=== PATIENT | male | born 1990 | race Caucasian/White ===

== ENCOUNTER 2019-04-16 14:34 | Emergency (ER) | payer MEDICAID ==
[~2019-04-16] VITALS: Ht 172.7 cm; Wt 67.0 kg
[2019-04-16 14:50] VITALS: BP 125/82
--- NOTE | 2019-04-16 14:55 | NUR ---
PATIENT ARRIVES WITH A COUGH THAT BEGAN ON FRIDAY. HE STATES HE WORKS AT [employer] AND IT'S IMPEDING HIS WORK.
--- NOTE | 2019-04-16 16:00 | NUR ---
break RN: Patient given discharge instructions and they have confirmed that they understand the instructions. Patient ambulatory with steady gait.
== END 2019-04-16 16:02 | disposition home or self-care (01) ==
LOC: ED 15:50
DX: B34.9 Viral infection, unspecified (principal)
CPT/HCPCS: 71046; 99283